=== PATIENT | male | born 1995 | race Caucasian/White ===

== ENCOUNTER 2016-07-05 17:59 | Emergency (ER) | payer OTHER ==
[~2016-07-05] VITALS: Ht 170.2 cm; Wt 86.4 kg
[~2016-07-05 17:59] MED LIST: NAPR-1169 PO; OXYC-57 PO; OXYC1TAB3 PO
[2016-07-05 18:12] VITALS: TEMP 37.6; Ht 170.2 cm; Wt 86.4 kg
[2016-07-05] MEDS ORDERED: KETOROLAC TROMETHAMINE 30 MG/ML VIAL IV STA (18:54)
[2016-07-05] MEDS ORDERED: ONDANSETRON INJ 2 MG/ML 2 ML VIAL IV STA (18:54)
[2016-07-05] MEDS ORDERED: SODIUM CHLORIDE 0.9% 1000ML 1,000 ML IV STA (18:54)
[2016-07-05] MEDS ORDERED: OPTIRAY 320 IV PRN (19:00)
[2016-07-05] MEDS ORDERED: ACET-1256 PO (19:31)
[2016-07-05] MEDS ORDERED: ZOLP10TA PO (19:31)
[2016-07-05 19:41] LABS: BASO % 0.7 %; BASO ABS # 0.05 K/uL (0-0.2); COMPLETE YES; EOS % 4.5 %; HEMATOCRIT 43.1 % (42-52); IG% 0.1 %; LYMPH % 39.9 %; LYMPH ABS # 2.67 K/uL (1.2-3.4); MEAN CELL VOLUME 83.9 fL (80-100); MEAN CORPUSCULAR HEMOGLOBIN 30.4 pg (25-34); MEAN CORPUSCULAR HGB CONC 36.2 g/dl (32-36); MEAN PLATELET VOLUME 9.3 fL (7.4-10.4); MONO % 9.7 %; NEUT % 45.1 %; PLATELET COUNT 209 K/uL (130-400); RED BLOOD COUNT 5.14 M/uL (4.7-6.1); WHITE BLOOD COUNT 6.69 K/uL (4.8-10.8)
[2016-07-05 19:46] LABS: BUN/CREATININE RATIO 12.1 (10-20); CALCIUM 8.9 mg/dl (8.5-10.1); CREATININE 0.87 mg/dl (0.60-1.40); POTASSIUM 3.7 mmol/L (3.5-5.1)
--- NOTE | 2016-07-05 20:36 | DIAGNOSTIC IMAGING REPORT ---
CT ABD/PELVIS IV CONTRAST ONLY CLINICAL HISTORY: right sided abd pain COMPARISON STUDY: None. TECHNIQUE: Following the IV administration of 118 mL of Optiray-320, CT scan of the abdomen and pelvis was performed from the lung bases to the proximal femurs. Images are reviewed in the axial, sagittal, and coronal planes. IV contrast was administered without complication. CT DOSE: 414.61 mGy.cm FINDINGS: Lower chest: The heart is normal in size and configuration, without pericardial effusion. The lung bases and pleural spaces are clear. Liver: There is mild hepatic steatosis. No focal masses are visualized. There is no ductal dilatation. The portal vein is patent. Gallbladder: Contracted. Spleen: Normal in size and attenuation. Pancreas: Unremarkable. Adrenal glands: Unremarkable. Kidneys: There is symmetric renal cortical enhancement. The kidneys are normal in size without hydronephrosis. Bowel: There are no transition zones indicate bowel obstruction. There is no evidence of acute diverticulitis. The appendix is not visualized with certainty. There are no findings to indicate acute appendicitis. Peritoneum: There is no intraperitoneal free air or abdominal ascites. Vasculature: The abdominal aorta is normal in course and caliber. Adenopathy: None. Pelvic viscera: The bladder, and pelvic viscera are unremarkable. Skeletal structures: There is a chronic deformity the right hip. The patient is status post right hip pinning. IMPRESSION: 1. No evidence of bowel obstruction. No evidence of free air 2. The appendix is not visualized with certainty. There are however no findings to indicate acute appendicitis 3. No evidence of acute diverticulitis. 4. Mild hepatic steatosis Electronically signed by: Fritz Alberto M.D. 07/05/2016 8:35 PM Dictated Date/Time: 07/05/2016 8:29 PM
[2016-07-05] MEDS ORDERED: MoRPHine SULFATE 4 MG/ML 1 ML CARP\\VIAL IV STA (20:42)
[2016-07-05 20:50] VITALS: BP 149/91; PULSE 87; O2SAT 98
[2016-07-05 20:56] LABS: MANUAL MICROSCOPIC REQUIRED? NO; URINE APPEARANCE CLEAR (CLEAR); URINE BILIRUBIN NEG (NEG); URINE COLOR YELLOW; URINE NITRITE NEG (NEG); URINE PH 6.5 (4.5-7.5); UROBILINOGEN NEG (NEG)
[2016-07-05 21:06] LABS: REVIEW REQ? NO
[2016-07-05 21:10] LABS: ZZUR CULT IF INDIC CLEAN CATCH NO
--- NOTE | 2016-07-06 00:53 | EMERGENCY ROOM VISIT NOTE ---
History Report prepared by Kim: Javier Rivas Under the Supervision of: Dr. Gregorio Smiley D.O. First contact with patient: 18:43 Chief Complaint: ABDOMINAL PAIN Stated Complaint: STOMACH PAIN,SEVERE BACK PAIN Nursing Triage Summary: pt reports for last week abd pain seen in ed in [facility] with acute diarrhea. pt believes it is his gallbladder History of Present Illness The patient is a 21 year old male who presents to the Emergency Room with complaints of intermittent right sided abdominal pain beginning two and a half months prior to arrival. He currently rates his discomfort as a 7/10 in severity. The patient associates lower back pain and nausea with today's symptoms. He states his lower back pain has persisted for the past several months, but recently worsened a few weeks ago while shoveling. The patient notes he has been experiencing intermittent diarrhea since his abdominal pain began, but he is not currently experiencing the diarrhea. However, his abdominal pain has persisted for the past week. He states he still has his appendix and gallbladder. The patient denies a history of abdominal surgeries or medical problems. Pt denies headache, change in vision, fevers, chest pain, shortness of breath, vomiting, diarrhea, pain with urination, and melena. No tingling or numbness in his groin. No weakness of his legs. Source of History: patient Onset: two and a half months [employer] Position: abdomen (right sided) Symptom Intensity: 7/10 Timing: intermittent Associated Symptoms: + abdominal pain, + back pain (lower), + nausea Review of Systems See HPI for pertinent positives & negatives. A total of 10 systems reviewed and were otherwise negative. Past Medical & Surgical Medical Problems: (1) Arthritis, hip Surgical Problems: (1) S/P ACL reconstruction Family History FH: gallbladder disease Social History Smoking Status: Current Every Day Smoker Marital Status: in relationship Housing Status: lives with significant other Occupation Status: employed Current/Historical Medications Scheduled Zolpidem Tartrate (Ambien), 10 MG PO HS Scheduled PRN Acetaminophen (Tylenol), 1,000 MG PO Q6H PRN for Pain or Fever Allergies Coded Allergies: No Known Allergies (Unverified , 03/18/16) Physical Exam Vital Signs Date Time Temp Pulse Resp B/P Pulse Ox O2 Delivery O2 Flow Rate FiO2 07/05/16 20:50 87 18 149/91 98 Room Air 07/05/16 19:43 85 18 135/94 99 Room Air 07/05/16 18:12 37.6 104 18 161/109 100 Room Air Physical Exam GENERAL: ambulating throughout the room, alert, well appearing, well nourished, no distress, non-toxic EYE EXAM: normal conjunctiva OROPHARYNX: no exudate, no erythema, lips, buccal mucosa, and tongue normal and mucous membranes are moist NECK: supple, no nuchal rigidity, no adenopathy, non-tender LUNGS: Clear to auscultation. Normal chest wall mechanics HEART: no murmurs, S1 normal and S2 normal ABDOMEN: minimal tenderness on right side of the abdomen, abdomen soft, normo- active bowel sounds, no masses, no rebound or guarding. BACK: Back is symmetrical on inspection and there is no deformity, no midline tenderness, no CVA tenderness. SKIN: no rashes and no bruising UPPER EXTREMITIES: upper extremities are grossly normal. LOWER EXTREMITIES: No pitting edema. NEURO EXAM: Normal sensorium, cranial nerves II-XII grossly intact, normal speech, no gross weakness of arms, no gross weakness of legs. Medical Decision & Procedures ER Provider Diagnostic Interpretation: CT:Per my review, radiologist interpretation. CT ABD/PELVIS IV CONTRAST ONLY CLINICAL HISTORY: right sided abd pain COMPARISON STUDY: None. TECHNIQUE: Following the IV administration of 118 mL of Optiray-320, CT scan of the abdomen and pelvis was performed from the lung bases to the proximal femurs. Images are reviewed in the axial, sagittal, and coronal planes. IV contrast was administered without complication. CT DOSE: 414.61 mGy.cm FINDINGS: Lower chest: The heart is normal in size and configuration, without pericardial effusion. The lung bases and pleural spaces are clear. Liver: There is mild hepatic steatosis. No focal masses are visualized. There is no ductal dilatation. The portal vein is patent. Gallbladder: Contracted. Spleen: Normal in size and attenuation. Pancreas: Unremarkable. Adrenal glands: Unremarkable. Kidneys: There is symmetric renal cortical enhancement. The kidneys are normal in size without hydronephrosis. Bowel: There are no transition zones indicate bowel obstruction. There is no evidence of acute diverticulitis. The appendix is not visualized with certainty. There are no findings to indicate acute appendicitis. Peritoneum: There is no intraperitoneal free air or abdominal ascites. Vasculature: The abdominal aorta is normal in course and caliber. Adenopathy: None. Pelvic viscera: The bladder, and pelvic viscera are unremarkable. Skeletal structures: There is a chronic deformity the right hip. The patient is status post right hip pinning. IMPRESSION: 1. No evidence of bowel obstruction. No evidence of free air 2. The appendix is not visualized with certainty. There are however no findings to indicate acute appendicitis 3. No evidence of acute diverticulitis. 4. Mild hepatic steatosis Electronically signed by: Fritz Alberto M.D. 07/05/2016 8:35 PM Laboratory Results 07/05/16 19:15 Red Blood Count 5.14, Mean Corpuscular Volume 83.9, Mean Corpuscular Hemoglobin 30.4, Mean Corpuscular Hemoglobin Concent 36.2, Mean Platelet Volume 9.3, Neutrophils (%) (Auto) 45.1, Lymphocytes (%) (Auto) 39.9, Monocytes (%) (Auto) 9.7, Eosinophils (%) (Auto) 4.5, Basophils (%) (Auto) 0.7, Neutrophils # (Auto) 3.01, Lymphocytes # (Auto) 2.67, Monocytes # (Auto) 0.65, Eosinophils # (Auto) 0.30, Basophils # (Auto) 0.05 07/05/16 19:15 Test 07/05/16 19:15 07/05/16 20:30 White Blood Count 6.69 K/uL (4.8-10.8) Red Blood Count 5.14 M/uL (4.7-6.1) Hemoglobin 15.6 g/dL (14.0-18.0) Hematocrit 43.1 % (42-52) Mean Corpuscular Volume 83.9 fL (80-100) Mean Corpuscular Hemoglobin 30.4 pg (25-34) Mean Corpuscular Hemoglobin Concent 36.2 g/dl (32-36) Platelet Count 209 K/uL (130-400) Mean Platelet Volume 9.3 fL (7.4-10.4) Neutrophils (%) (Auto) 45.1 % Lymphocytes (%) (Auto) 39.9 % Monocytes (%) (Auto) 9.7 % Eosinophils (%) (Auto) 4.5 % Basophils (%) (Auto) 0.7 % Neutrophils # (Auto) 3.01 K/uL (1.4-6.5) Lymphocytes # (Auto) 2.67 K/uL (1.2-3.4) Monocytes # (Auto) 0.65 K/uL (0.11-0.59) Eosinophils # (Auto) 0.30 K/uL (0-0.5) Basophils # (Auto) 0.05 K/uL (0-0.2) RDW Standard Deviation 40.0 fL (36.4-46.3) RDW Coefficient of Variation 13.2 % (11.5-14.5) Immature Granulocyte % (Auto) 0.1 % Immature Granulocyte # (Auto) 0.01 K/uL (0.00-0.02) Anion Gap 9.0 mmol/L (3-11) Est Creatinine Clear Calc Drug Dose 139.8 ml/min Estimated GFR () 142.0 Estimated GFR (Non- 122.5 BUN/Creatinine Ratio 12.1 (10-20) Calcium Level 8.9 mg/dl (8.5-10.1) Total Bilirubin 0.4 mg/dl (0.2-1) Direct Bilirubin 0.1 mg/dl (0-0.2) Aspartate Amino Transf (AST/SGOT) 29 U/L (15-37) Alanine Aminotransferase (ALT/SGPT) 67 U/L (12-78) Alkaline Phosphatase 56 U/L (45-117) Total Protein 7.6 gm/dl (6.4-8.2) Albumin 4.1 gm/dl (3.4-5.0) Lipase 136 U/L (73-393) Urine Color YELLOW Urine Appearance CLEAR (CLEAR) Urine pH 6.5 (4.5-7.5) Urine Specific [place] 1.010 (1.000-1.030) Urine Protein NEG (NEG) Urine Glucose (UA) NEG (NEG) Urine Ketones NEG (NEG) Urine Occult Blood NEG (NEG) Urine Nitrite NEG (NEG) Urine Bilirubin NEG (NEG) Urine Urobilinogen NEG (NEG) Urine Leukocyte Esterase NEG (NEG) Laboratory results per my review. Medications Administered Medications (Trade) Dose Ordered Sig/Kimberley Route Start Time Stop Time Status Last Admin Dose Admin Sodium Chloride (Nss 1000ml) 1,000 ml @ 999 mls/hr Q1H1M STAT IV 07/05/16 18:54 07/05/16 19:54 DC 07/05/16 19:17 999 MLS/HR Ondansetron HCl (Zofran Inj) 4 mg NOW STAT IV 07/05/16 18:54 07/05/16 18:56 DC 07/05/16 19:17 4 MG Ketorolac Tromethamine (Toradol Inj) 30 mg NOW STAT IV 07/05/16 18:54 07/05/16 18:56 DC 07/05/16 19:17 30 MG Morphine Sulfate (MoRPHine SULFATE INJ) 4 mg NOW STAT IV 07/05/16 20:42 07/05/16 20:43 DC 07/05/16 20:49 4 MG ED Course ED COURSE: Vital signs were reviewed and showed tachycardia and hypertension. The patients medical record was reviewed The above diagnostic studies were performed and reviewed. ED treatments and interventions as stated above. 1847: The patient was evaluated in room A9B. A complete history and physical examination was performed. 1853: Ordered Toradol Inj 30 mg IV, Zofran Inj 4 mg IV, Sodium Chloride 1,000 ml @ 999 mls/hr IV. 2039: Reevaluated the patient at this time, and he is still experiencing discomfort. 2041: Ordered Morphine Sulfate 4 mg IV. 2127: Upon reevaluation, the patient is doing well.I discussed my findings with the patient and he understands and agrees with the treatment plan. Based on the patients age, coexisting illnesses, exam and lab findings the decision to treat as an outpatient was made. The patient remained stable while under my care. The patient appeared well at the time of discharge. Medical Decision Differential diagnoses includes but is not limited to gastritis, peptic ulcer disease, GERD, gallbladder disease, pancreatitis, small bowel obstruction, acute coronary syndrome, pericarditis, ischemic bowel, irritable bowel disease, irritable bowel syndrome, appendicitis, diverticulitis, malignancy, hernia, urinary tract infection, torsion, perforation, trauma, infectious. Patient is a 19-year-old male who presents the ER for persistent abdominal pain , and diarrhea. He has the abdominal pain and diarrhea have been waxing and waning for the past several months. He notes that his diarrhea has currently resolved. He had a formed bowel movement earlier today. He has had stool cultures done at an outside hospital which were unremarkable. CT of his abdomen and pelvis was unremarkable. Labs including CBC, BMP, LFTs, bilirubin and lipase are unremarkable. UA was negative. His back pain worsened after shoveling and does appear to be worsening with movement. Do favor this muscle skeletal. I question whether his abdominal pain is related to IBS but that does not appear to be any acute pathology. While in the ER he was given a bolus normal saline along with Toradol and morphine. He did have improvement of his pain. Patient was discharged and requested narcotics. I do not feel this is reasonable as does appear to be more of an acute on chronic issue and consequently I was not comfortable with this. Recommended following up with GI and offered referral but he already currently has an appointment set up for early July. Discussed with Pt concerning signs and symptoms to watch out for. Pt was instructed to follow up with their PCP and discussed with the patient their option to return to the ED at anytime for persistent or worsening symptoms. The appropriate anticipatory guidance and out-patient management, including indications for return to the emergency department, were explained at length to the patient and understood. Impression Primary Impression: Right sided abdominal pain Scribe Attestation The scribe's documentation has been prepared under my direction and personally reviewed by me in its entirety. I confirm that the note above accurately reflects all work, treatment, procedures, and medical decision making performed by me. Departure Information Dispostion Home / Self-Care Referrals No Doctor, Assigned (PCP) Forms HOME CARE DOCUMENTATION FORM, IMPORTANT VISIT INFORMATION Patient Instructions Abdominal Pain - [facility], [facility] Additional Instructions Please follow up with your primary care doctor with in the next 24 hours. Any worsening of your symptoms, please return to the ED immediately. This includes fevers greater than 100.4, persistent nausea vomiting, worsening pain, blood in your stool, or any other concerning signs or symptoms from your standpoint. Please take Motrin or Tylenol as needed for your pain.
[2016-10-04] MEDS ORDERED: AZIT250T5 PO (19:03)
== END 2016-07-05 21:40 | disposition home or self-care (01) ==
LOC: C.EDB 18:00 → C.EDA 21:40
DX: R10.9 Unspecified abdominal pain (principal); R19.7 Diarrhea, unspecified; M19.90 Unspecified osteoarthritis, unspecified site; F17.200 Nicotine dependence, unspecified, uncomplicated; Z98.890 Other specified postprocedural states

== ENCOUNTER → 2016-09-26 | Outpatient (CLI) | payer OTHER ==
[~2016-09-26] VITALS: Ht 177.8 cm; Wt 91.0 kg
[~2016-09-26] MED LIST changes: +ACET-1256 PO; +AZIT-60 PO; +HYDR-3126 PO; +IBUP-1050 PO; -NAPR-1169 PO; -OXYC1TAB3 PO; +ZOLP10TA PO
[2016-09-26 14:31] VITALS: BP 145/90; PULSE 73; Ht 177.8 cm; Wt 91.0 kg
== END | disposition home or self-care (01) ==
LOC: C.NEUR 13:56
PROVIDERS: ATTEND Internal Medicine Pulmonary Disease
DX: G47.00 Insomnia, unspecified (principal)

== ENCOUNTER 2016-10-04 15:47 | Emergency (ER) | payer OTHER ==
[~2016-10-04] VITALS: Ht 177.8 cm; Wt 90.5 kg
[~2016-10-04 15:47] MED LIST changes: -AZIT-60 PO; -HYDR-3126 PO; -IBUP-1050 PO; -OXYC-57 PO
[2016-10-04 15:55] VITALS: Ht 177.8 cm; Wt 90.5 kg
[2016-10-04] MEDS ORDERED: ONDANSETRON INJ 2 MG/ML 2 ML VIAL IV STA (16:15)
[2016-10-04] MEDS ORDERED: SODIUM CHLORIDE 0.9% 1000ML 1,000 ML IV STA (16:15)
[2016-10-04] MEDS ORDERED: MoRPHine SULFATE 4 MG/ML 1 ML CARP\\VIAL IV STA (16:15)
[2016-10-04] MEDS ORDERED: HYDR-3126 PO (16:29)
--- NOTE | 2016-10-04 16:35 | DIAGNOSTIC IMAGING REPORT ---
CHEST ONE VIEW PORTABLE HISTORY: Cough, dyspnea COMPARISON: None. FINDINGS: The lungs are clear. Cardiac silhouette is normal in size. No pleural effusions. No pneumothorax. IMPRESSION: No acute process. Electronically signed by: Juan Looney M.D. 10/04/2016 4:33 PM Dictated Date/Time: 10/04/2016 4:32 PM
[2016-10-04 16:47] VITALS: O2SAT 98
[2016-10-04 17:03] LABS: BASO % 0.3 %; BASO ABS # 0.03 K/uL (0-0.2); COMPLETE YES; EOS % 2.1 %; HEMATOCRIT 43.7 % (42-52); IG% 0.4 %; LYMPH % 23.5 %; LYMPH ABS # 2.32 K/uL (1.2-3.4); MEAN CELL VOLUME 82.8 fL (80-100); MEAN CORPUSCULAR HEMOGLOBIN 30.5 pg (25-34); MEAN CORPUSCULAR HGB CONC 36.8 g/dl (32-36); MONO % 7.8 %; NEUT % 65.9 %; PLATELET COUNT 244 K/uL (130-400); RED BLOOD COUNT 5.28 M/uL (4.7-6.1); WHITE BLOOD COUNT 9.87 K/uL (4.8-10.8)
[2016-10-04 17:12] LABS: POINT OF CARE TROPONIN I < 0.030 ng/ml (0-0.045)
[2016-10-04 17:14] LABS: PROTHROMBIN TIME (PATIENT) 10.4 SECONDS (9.0-12.0)
[2016-10-04 17:22] LABS: ALT/SGPT 82 U/L (12-78); AST/SGOT 32 U/L (15-37); BLOOD UREA NITROGEN 12 mg/dl (7-18); BUN/CREATININE RATIO 13.9 (10-20); CALCIUM 9.4 mg/dl (8.5-10.1); CARBON DIOXIDE 25 mmol/L (21-32); CHLORIDE 108 mmol/L (98-107); GLUCOSE 93 mg/dl (70-99); MAGNESIUM 2.6 mg/dl (1.8-2.4); SODIUM 141 mmol/L (136-145)
[2016-10-04 17:25] LABS: ALB/GLOB RATIO 1.3 (0.9-2); ALKALINE PHOSPHATASE 73 U/L (45-117); C-REACTIVE PROTEIN < 0.29 mg/dl (0-0.29)
--- NOTE | 2016-10-04 17:37 | DIAGNOSTIC IMAGING REPORT ---
RIGHT KNEE 3 VIEWS CLINICAL HISTORY: Right knee pain, fever, chills. COMPARISON: Outside radiograph dated 08/23/2016 DISCUSSION: There are postsurgical changes of an ACL repair. There is a small joint effusion. Small calcific/bony fragments are again visualized at the level of the intercondylar notch. There are no acute fractures. IMPRESSION: 1. Postsurgical changes of a prior ACL repair 2. No acute fractures 3. Small suprapatellar joint effusion. Electronically signed by: Fritz Alberto M.D. 10/04/2016 5:36 PM Dictated Date/Time: 10/04/2016 5:35 PM
[2016-10-04 18:21] LABS: URINE APPEARANCE CLEAR (CLEAR); URINE BILIRUBIN NEG (NEG); URINE COLOR YELLOW; URINE NITRITE NEG (NEG); URINE PH 7.5 (4.5-7.5); URINE SPECIFIC GRAVITY 1.011 (1.000-1.030); UROBILINOGEN NEG (NEG); ZZUR CULT IF INDIC CLEAN CATCH NO
[2016-10-04 18:30] LABS: MANUAL MICROSCOPIC REQUIRED? NO; REVIEW REQ? NO
[2016-10-04] MEDS ORDERED: AZITHROMYCIN 250 MG TAB PO STA (19:01)
[2016-10-04] MEDS ORDERED: OXYC-57 PO (19:03)
[2016-10-04] MEDS ORDERED: AZIT-60 PO (19:03)
--- NOTE | 2016-10-04 19:06 | EMERGENCY ROOM VISIT NOTE ---
History First contact with patient: 16:01 Chief Complaint: ILLNESS Stated Complaint: RT KNEE PAIN, FEVER, DIZZINESS, CHILLS History of Present Illness The patient is a 21 year old male who presents to the Emergency Room via private vehicle accompanied by with complaints of "right knee pain, fever, dizziness, chills". The patient states that he had right meniscal repair with Dr. Mike moya 3 weeks ago, and since then has been developing a cough, dizziness, right knee pain and feeling feverish. He also has associated shortness of breath. He states that 3 weeks ago he had the knee surgery for his meniscus and has been doing well. He believes that it fixed the issue. He states unfortunately the knee caused him a lot of problems and secondarily lost his job previously. He states that he also was placed upon the lisinopril recently inserted for 4 days but developed a cough of which has regressed despite stopping the medication. He now notes the cough is productive of greenish and yellow phlegm. He states that dizziness began a few days ago, and today while standing he felt as if he is going to pass out. He notes shortness of breath started yesterday as well as the dizziness. The fever also started yesterday. He took his temperature and was having any 99.6, 99.9, 100.1 and 99.9 all of which are in Fahrenheit. He denies any chest pain. Review of Systems A complete 6-point Review of Systems was discussed with the patient, with pertinent positives and negatives listed in the History of Present Illness. All remaining Review of Systems questions can be considered negative unless otherwise specified. Past Medical/Surgical History Medical Problems: (1) Arthritis, hip Surgical Problems: (1) S/P ACL reconstruction Family History FH: gallbladder disease Social History Smoking Status: Current Every Day Smoker Marital Status: in relationship Housing Status: lives with significant other Occupation Status: employed Current/Historical Medications Scheduled Azithromycin (Zithromax), 250 MG PO DAILY Hydroxyzine Hcl (Atarax), 100 MG PO HS Zolpidem Tartrate (Ambien), 10 MG PO HS Scheduled PRN Oxycodone/Acetaminophen 5MG/325MG (Percocet 5MG/325MG), 1 TAB PO Q4H PRN for Pain Allergies Coded Allergies: No Known Allergies (Unverified , 10/04/16) Physical Exam Vital Signs Date Time Temp Pulse Resp B/P (MAP) Pulse Ox O2 Delivery O2 Flow Rate FiO2 10/04/16 20:44 36.9 81 16 128/87 97 10/04/16 20:43 81 16 128/87 97 Room Air 10/04/16 19:29 88 16 124/88 97 Room Air 10/04/16 17:18 88 10/04/16 17:06 135/97 10/04/16 17:05 88 16 135/97 97 Room Air 10/04/16 16:47 98 Room Air 10/04/16 15:55 36.9 111 16 155/93 98 Room Air Physical Exam VITAL SIGNS - Vital signs and nursing notes were reviewed. Patient is afebrile , hypertensive at 155/93, tachycardic at a rate of 111 bpm, and is saturating well on room air 98%. GENERAL -21-year-old male appearing his stated age who is in no acute distress. Communicates well with provider and answers questions appropriately. SKIN - Without rashes. HEAD - NC/AT. EYES - PERRL with EOMI bilaterally. Sclera anicteric. Palpebral conjunctiva pink and moist with no injection noted. EARS - No deformities of external structures noted on gross examination bilaterally. No pain elicited with palpation of the tragus bilaterally. External auditory canals without discharge or otorrhea. Tympanic membranes pearly thomas without retraction or bulging. No fluid or purulent material visualized behind the TM. Handle of malleus, umbo, cone of light, pars tensa/ flaccid all easily visualized. NOSE - Midline and without cyanosis. No epistaxis or purulent drainage noted. Septum midline without deviation or septal hematoma noted. MOUTH/OROPHARYNX - Without perioral cyanosis. Buccal mucosa pink and moist and without leukoplakia. Tongue midline with equal elevation of palate bilaterally. No tonsillar hypertrophy, erythema, or exudates. Fair dentition noted. NECK - Neck with FROM. Supple to palpation. No lymphadenopathy noted. No nuchal rigidity. No meningismus LUNGS - Chest wall symmetric without accessory muscle use, intercostals retractions, or central cyanosis. Normal vesicular breath sounds CTA B/L. No wheezes, rales, or rhonchi appreciated. CARDIAC - RRR with S1/S2. No murmur, rubs, or gallops appreciated. EXTREMITIES - No clubbing or peripheral cyanosis. No pretibial edema present. The right knee joint is not erythematous, edematous or tender to palpation. There is near full range of motion of the right knee. +5/5 strength noted in UE /LE bilaterally. NEUROLOGIC - Cranial nerves II through XII grossly intact. Sensory intact to light touch throughout. PSYCH - A&OPt is very pleasant and interacts well with examiner. Medical Decision & Procedures ER Provider Diagnostic Interpretation: ULTRASOUND RIGHT VENOUS DOPP LOWER EXT UNILAT CLINICAL HISTORY: Right leg pain COMPARISON STUDY: No previous studies for comparison. FINDINGS: Real-time and color flow Doppler imaging were performed. Flow was seen within the femoral, popliteal and calf veins with no intraluminal thrombus demonstrated. The saphenous vein is patent. IMPRESSION: No evidence of right lower extremity DVT. Electronically signed by: Fritz Alberto M.D. 10/04/2016 7:58 PM Dictated Date/Time: 10/04/2016 7:58 PM RIGHT KNEE 3 VIEWS CLINICAL HISTORY: Right knee pain, fever, chills. COMPARISON: Outside radiograph dated 08/23/2016 DISCUSSION: There are postsurgical changes of an ACL repair. There is a small joint effusion. Small calcific/bony fragments are again visualized at the level of the intercondylar notch. There are no acute fractures. IMPRESSION: 1. Postsurgical changes of a prior ACL repair 2. No acute fractures 3. Small suprapatellar joint effusion. Electronically signed by: Fritz Alberto M.D. 10/04/2016 5:36 PM Dictated Date/Time: 10/04/2016 5:35 PM CHEST ONE VIEW PORTABLE HISTORY: Cough, dyspnea COMPARISON: None. FINDINGS: The lungs are clear. Cardiac silhouette is normal in size. No pleural effusions. No pneumothorax. IMPRESSION: No acute process. Electronically signed by: Juan Looney M.D. 10/04/2016 4:33 PM Dictated Date/Time: 10/04/2016 4:32 PM Laboratory Results 10/04/16 16:35 Red Blood Count 5.28, Mean Corpuscular Volume 82.8, Mean Corpuscular Hemoglobin 30.5, Mean Corpuscular Hemoglobin Concent 36.8, Mean Platelet Volume 9.0, Neutrophils (%) (Auto) 65.9, Lymphocytes (%) (Auto) 23.5, Monocytes (%) (Auto) 7.8, Eosinophils (%) (Auto) 2.1, Basophils (%) (Auto) 0.3, Neutrophils # (Auto) 6.50, Lymphocytes # (Auto) 2.32, Monocytes # (Auto) 0.77, Eosinophils # (Auto) 0.21, Basophils # (Auto) 0.03 10/04/16 16:35 Test 10/04/16 16:35 10/04/16 16:53 10/04/16 18:05 White Blood Count 9.87 K/uL (4.8-10.8) Red Blood Count 5.28 M/uL (4.7-6.1) Hemoglobin 16.1 g/dL (14.0-18.0) Hematocrit 43.7 % (42-52) Mean Corpuscular Volume 82.8 fL (80-100) Mean Corpuscular Hemoglobin 30.5 pg (25-34) Mean Corpuscular Hemoglobin Concent 36.8 g/dl (32-36) Platelet Count 244 K/uL (130-400) Mean Platelet Volume 9.0 fL (7.4-10.4) Neutrophils (%) (Auto) 65.9 % Lymphocytes (%) (Auto) 23.5 % Monocytes (%) (Auto) 7.8 % Eosinophils (%) (Auto) 2.1 % Basophils (%) (Auto) 0.3 % Neutrophils # (Auto) 6.50 K/uL (1.4-6.5) Lymphocytes # (Auto) 2.32 K/uL (1.2-3.4) Monocytes # (Auto) 0.77 K/uL (0.11-0.59) Eosinophils # (Auto) 0.21 K/uL (0-0.5) Basophils # (Auto) 0.03 K/uL (0-0.2) RDW Standard Deviation 36.9 fL (36.4-46.3) RDW Coefficient of Variation 12.4 % (11.5-14.5) Immature Granulocyte % (Auto) 0.4 % Immature Granulocyte # (Auto) 0.04 K/uL (0.00-0.02) Erythrocyte Sedimentation Rate 5 mm/hr (0-14) Prothrombin Time 10.4 SECONDS (9.0-12.0) Prothromb Time International Ratio 1.0 (0.9-1.1) Activated Partial Thromboplast Time 26.2 SECONDS (21.0-31.0) Partial Thromboplastin Ratio 1.0 Anion Gap 8.0 mmol/L (3-11) Est Creatinine Clear Calc Drug Dose 145.7 ml/min Estimated GFR () 140.0 Estimated GFR (Non- 120.8 BUN/Creatinine Ratio 13.9 (10-20) Calcium Level 9.4 mg/dl (8.5-10.1) Magnesium Level 2.6 mg/dl (1.8-2.4) Total Bilirubin 0.4 mg/dl (0.2-1) Aspartate Amino Transf (AST/SGOT) 32 U/L (15-37) Alanine Aminotransferase (ALT/SGPT) 82 U/L (12-78) Alkaline Phosphatase 73 U/L (45-117) C-Reactive Protein < 0.29 mg/dl (0-0.29) Total Protein 8.1 gm/dl (6.4-8.2) Albumin 4.5 gm/dl (3.4-5.0) Globulin 3.6 gm/dl (2.5-4.0) Albumin/Globulin Ratio 1.3 (0.9-2) Bedside D-Dimer 152 ng/mlFEU (0-450) Bedside Lactic Acid Venous 1.72 mmol/L (0.90-1.70) Bedside Troponin I < 0.030 ng/ml (0-0.045) Urine Color YELLOW Urine Appearance CLEAR (CLEAR) Urine pH 7.5 (4.5-7.5) Urine Specific [place] 1.011 (1.000-1.030) Urine Protein NEG (NEG) Urine Glucose (UA) NEG (NEG) Urine Ketones NEG (NEG) Urine Occult Blood NEG (NEG) Urine Nitrite NEG (NEG) Urine Bilirubin NEG (NEG) Urine Urobilinogen NEG (NEG) Urine Leukocyte Esterase NEG (NEG) Medications Administered Medications (Trade) Dose Ordered Sig/[place] Route Start Time Stop Time Status Last Admin Dose Admin Morphine Sulfate (MoRPHine SULFATE INJ) 4 mg NOW STAT IV 10/04/16 16:15 10/04/16 16:18 DC 10/04/16 16:46 4 MG Ondansetron HCl (Zofran Inj) 4 mg NOW STAT IV 10/04/16 16:15 10/04/16 16:18 DC 10/04/16 16:45 4 MG Sodium Chloride 1,000 ml @ 999 mls/hr Q1H1M STAT IV 10/04/16 16:15 10/04/16 17:15 DC 10/04/16 16:45 999 MLS/HR Azithromycin (Zithromax Tab) 500 mg NOW STAT PO 10/04/16 19:01 10/04/16 19:03 DC 10/04/16 19:33 500 MG Medical Decision Patient was seen and evaluated as above. After obtaining a thorough history and physical examination IV access was initiated and the above workup was performed. Patient presents today subjectively with a concern over shortness of breath, dizziness, fevers, chills as well as knee pain. The accompanying states that he is concerned he could be septic secondary to a knee joint. Radiographs were obtained of the right knee, chest and the above workup was performed. There is no leukocytosis or anemia noted. ESR is 5. Coags normal. D-dimer normal. CMP reveals chloride high at 108, [id number] lactic acid 1.72, mag high at 2.6 and ALT was high at 82. Troponin was negative. C-reactive protein normal. Urine unremarkable. Patient was given morphine and Zofran for his pain. He was reevaluated and was feeling better. I do not suspect septic joint in this case. Chest x-ray unremarkable for acute process. Case was discussed with my attending, and the decision was made to contact the on-call orthopedic surgeon who performed the surgery. It was stated the patient was referred here by them today after he called in to their office. I spoke with Dr. Cuevas, he recommended I obtain an ultrasound to rule out DVT. This was negative. I discussed with him that I do not suspect septic joint in this patient. Blood cultures are pending, and the patient was told that if these are positive he'll certainly be notified. Patient this time appears stable for outpatient management. He is to call his orthopedic surgeon tomorrow to schedule follow-up. I did provide him with 500 mg of azithromycin here for treatment of acute bronchitis 250 mg for next 4 days provided to the pharmacy. I was also going to give him Percocet for his pain, however I was called by the pharmacy and we discussed repeat BMP. Patient does have a lot of prescriptions, and Nexium as a current prescription for [place]. I we will cancel the Percocet prescription and verbally canceled this with the pharmacist from [facility]. I do believe this is the right decision and did inform the patient upon this concern. I informed him that he does have an active prescription, and he told me that he soaked the pills and water because they do not help him a double down the drain or toilet. I informed him that unfortunately he has a current prescription, therefore I do not feel comfortable providing him with a prescription. The patient at this time appears stable for outpatient management , was educated upon worrisome symptoms which to return, had questions prior to discharge, and was discharged home in good condition. In the evaluation and treatment of this patient, the following differential diagnoses were considered: Patellar Fracture, Tibial Plateau Fracture, Distal Femur Fracture, ACL Injury, PCL Injury, Collateral Ligament Injury, Pes Anserine Bursitis, septic joint, pneumonia, [place]uve Fracture, among others. Impression Primary Impression: Cough Additional Impression: Knee pain, right Departure Information Dispostion Home / Self-Care Condition GOOD Prescriptions Azithromycin (ZITHROMAX) 250 Mg Tab 250 MG PO DAILY, #4 TAB Prov: Sanket Pulido PA-C 10/04/16 Oxycodone/Acetaminophen 5MG/325MG (PERCOCET 5MG/325MG) Tab 1 TAB PO Q4H Y for Pain, #18 TAB For Initial Treatment Prov: Sanket Pulido PA-C 10/04/16 Referrals Drew Li D.O. (PCP) Dmitir Abreu M.D. Patient Instructions My [facility] Additional Instructions You have been treated in the Emergency Department for Knee Pain. You have received pain medicine in the emergency department which impairs your ability to operate a vehicle. It is illegal for you to drive after receiving these medicines. You have been prescribed PERCOCET to be used for pain control. This is a narcotic medication. You cannot drive or consume alcohol while on this medicine. This medicine should only be used for pain that cannot be controlled with [id number] pain medicines. NO TYLENOL WITH THIS!! Azithromycin starting tomorrow daily for 4 days for your cough. For pain control, you can use the following [id number] medicines (if >12 yo): - Regular strength (325mg/tab) Tylenol (acetaminophen) 2 tabs every 4-6 hours as needed. Do not exceed 12 tablets in a 24 hour period. Avoid taking more than 3 grams (3000 mg) of Tylenol per day. This includes any other sources of acetaminophen you may take on a regular basis. - Regular strength (200 mg/tab) Advil (ibuprofen) 1-2 tabs every 4-6 hours as needed. Do not exceed a dose of 3200 mg per day. If this is a recent injury (<24 hrs), ice can be applied to the area of pain for the first 3 days to help decrease pain and inflammation. Ice massages can be performed by freezing water in a paper cup, peeling back the cup to expose the ice and then massaging over the affected area. You have been provided the number for an Orthopaedic Surgeon. You should call this number as soon as possible to establish a follow-up visit from today's Emergency Department visit. Return to the Emergency Department if your current symptoms worsen despite treatment course outlined above. Please return to the emergency department with any new/concerning symptoms. Problem Qualifiers
--- NOTE | 2016-10-04 20:00 | DIAGNOSTIC IMAGING REPORT ---
ULTRASOUND RIGHT VENOUS DOPP LOWER EXT UNILAT CLINICAL HISTORY: Right leg pain COMPARISON STUDY: No previous studies for comparison. FINDINGS: Real-time and color flow Doppler imaging were performed. Flow was seen within the femoral, popliteal and calf veins with no intraluminal thrombus demonstrated. The saphenous vein is patent. IMPRESSION: No evidence of right lower extremity DVT. Electronically signed by: Fritz Alberto M.D. 10/04/2016 7:58 PM Dictated Date/Time: 10/04/2016 7:58 PM
[2016-10-04 20:44] VITALS: BP 128/87; PULSE 81; TEMP 36.9; O2SAT 97
[2016-10-05] MEDS ORDERED: IBUP-1050 PO (19:44)
== END 2016-10-04 20:44 | disposition home or self-care (01) ==
LOC: C.EDB 15:49
DX: M25.561 Pain in right knee (principal); R05 Cough; Z98.890 Other specified postprocedural states; F17.210 Nicotine dependence, cigarettes, uncomplicated; Z79.899 Other long term (current) drug therapy

== ENCOUNTER 2016-10-05 18:14 | Emergency (ER) | payer OTHER ==
[~2016-10-05] VITALS: Ht 177.8 cm; Wt 89.3 kg
[~2016-10-05 18:14] MED LIST changes: -ACET-1256 PO; +AZIT-60 PO; +HYDR-3126 PO; +OXYC-57 PO
[2016-10-05 18:18] VITALS: Ht 177.8 cm; Wt 89.3 kg
[2016-10-05] MEDS ORDERED: SODIUM CHLORIDE 0.9% 1000ML 1,000 ML IV ONE (19:09)
[2016-10-05] MEDS ORDERED: ACETAMINOPHEN 500 MG TAB PO STA (19:09)
[2016-10-05] MEDS ORDERED: IBUP-1050 PO (19:44)
[2016-10-05 20:16] LABS: BASO % 0.2 %; BASO ABS # 0.02 K/uL (0-0.2); COMPLETE YES; EOS % 1.4 %; HEMATOCRIT 43.3 % (42-52); IG% 0.3 %; LYMPH % 22.6 %; LYMPH ABS # 2.08 K/uL (1.2-3.4); MEAN CELL VOLUME 82.3 fL (80-100); MEAN CORPUSCULAR HEMOGLOBIN 29.8 pg (25-34); MEAN CORPUSCULAR HGB CONC 36.3 g/dl (32-36); MONO % 7.4 %; NEUT % 68.1 %; PLATELET COUNT 239 K/uL (130-400); RED BLOOD COUNT 5.26 M/uL (4.7-6.1); WHITE BLOOD COUNT 9.21 K/uL (4.8-10.8)
[2016-10-05] MEDS ORDERED: MoRPHine SULFATE 10 MG/ML CARP/VIAL IV STA (20:17)
[2016-10-05 20:26] LABS: PROTHROMBIN TIME (PATIENT) 10.7 SECONDS (9.0-12.0)
[2016-10-05 20:33] LABS: BUN/CREATININE RATIO 10.8 (10-20); CALCIUM 9.3 mg/dl (8.5-10.1); CREATININE 0.98 mg/dl (0.60-1.40); POTASSIUM 3.6 mmol/L (3.5-5.1)
[2016-10-05 20:36] LABS: ALB/GLOB RATIO 1.3 (0.9-2)
--- NOTE | 2016-10-05 21:05 | EMERGENCY ROOM VISIT NOTE ---
History Report prepared by Kim: Clement Dunlap Under the Supervision of: Dr. Austin Diaz M.D. First contact with patient: 19:01 Chief Complaint: FEVER Stated Complaint: L, R KNEE PAIN, DIZZINESS, FEVER History of Present Illness The patient is a 21 year old male who presents to the Emergency Room with complaints of worsening right knee pain starting three weeks ago. He rates his pain as a 6/10 in severity. The patient states he had right knee surgery for a meniscus repair three weeks ago. He reports that he started to experience right knee pain following the surgery which has worsened. The patient states he has been feeling short of breath, dizzy, and weakness leading him to a near syncopal episode in the shower yesterday. The patient states that he has also been experiencing diarrhea that stopped a couple of days ago, abdominal pain, a fever, and a cough. He reports that these symptoms prompted him to visit the ED yesterday where they found no significant findings, but did give him 500 mg of Zithromax. The patient states that he was prescribed a Z pack for his cough but admits he has not been able to pick the prescription up yet. He states that his left knee has been experiencing pain since the visit, but admits that his right knee is still worse. He reports that he has had contact with orthopedics following his surgery including a follow up to remove stitches and two phone calls occurring yesterday and today. The patient states that orthopedics advised him to report to the ED. He reports that he occasionally takes Tylenol and ibuprofen and Ambien. The patient denies any sore throat or possible tick bites. Source of History: patient Onset: three weeks ago Position: knee (left) Symptom Intensity: 6/10 Timing: worsening Associated Symptoms: + fevers, + cough, + SOB, + abdominal pain, + diarrhea , + weakness Review of Systems See HPI for pertinent positives & negatives. A total of 10 systems reviewed and were otherwise negative. Past Medical & Surgical Medical Problems: (1) Arthritis, hip Surgical Problems: (1) S/P ACL reconstruction Family History FH: gallbladder disease Social History Smoking Status: Current Every Day Smoker Marital Status: in relationship Housing Status: lives with significant other Occupation Status: employed Current/Historical Medications Scheduled Azithromycin (Zithromax), 250 MG PO DAILY Hydroxyzine Hcl (Atarax), 100 MG PO HS Ibuprofen (Advil), 200-600 MG PO Q4H Zolpidem Tartrate (Ambien), 10 MG PO HS Scheduled PRN Oxycodone/Acetaminophen 5MG/325MG (Percocet 5MG/325MG), 1 TAB PO Q4H PRN for Pain Allergies Coded Allergies: No Known Allergies (Unverified , 10/05/16) Physical Exam Vital Signs Date Time Temp Pulse Resp B/P (MAP) Pulse Ox O2 Delivery O2 Flow Rate FiO2 10/05/16 22:13 36.8 70 16 141/80 99 10/05/16 22:09 70 16 141/80 99 Room Air 10/05/16 20:19 87 16 153/91 99 Room Air 10/05/16 18:18 36.8 108 18 144/85 98 Room Air Physical Exam GENERAL: Patient is in no acute distress. HEENT: No acute trauma, normocephalic atraumatic, mucous membranes moist, no nasal congestion, no scleral icterus. NECK: No stridor, no adenopathy, no meningismus, trachea is midline. LUNGS: Clear to auscultation bilaterally, no wheeze, no rhonchi, breath sounds equal. HEART: Without murmurs gallops or rubs, regular rate and rhythm. ABDOMEN: Soft, nontender, bowel sounds positive, no hernias, no peritonitis. EXTREMITIES: Evidence of recent surgery to right knee but no evidence of cellulitis. No large joint effusion. No real warmth. Diffuse pain with palpation about the anterior right knee. NEUROLOGIC: Oriented x 3, no acute motor or sensory deficits, no focal weakness. SKIN: No rash, no jaundice, no diaphoresis. Medical Decision & Procedures Laboratory Results 10/05/16 19:40 Red Blood Count 5.26, Mean Corpuscular Volume 82.3, Mean Corpuscular Hemoglobin 29.8, Mean Corpuscular Hemoglobin Concent 36.3, Mean Platelet Volume 9.0, Neutrophils (%) (Auto) 68.1, Lymphocytes (%) (Auto) 22.6, Monocytes (%) (Auto) 7.4, Eosinophils (%) (Auto) 1.4, Basophils (%) (Auto) 0.2, Neutrophils # (Auto) 6.27, Lymphocytes # (Auto) 2.08, Monocytes # (Auto) 0.68, Eosinophils # (Auto) 0.13, Basophils # (Auto) 0.02 10/05/16 19:40 Test 10/05/16 19:40 10/05/16 20:05 White Blood Count 9.21 K/uL (4.8-10.8) Red Blood Count 5.26 M/uL (4.7-6.1) Hemoglobin 15.7 g/dL (14.0-18.0) Hematocrit 43.3 % (42-52) Mean Corpuscular Volume 82.3 fL (80-100) Mean Corpuscular Hemoglobin 29.8 pg (25-34) Mean Corpuscular Hemoglobin Concent 36.3 g/dl (32-36) Platelet Count 239 K/uL (130-400) Mean Platelet Volume 9.0 fL (7.4-10.4) Neutrophils (%) (Auto) 68.1 % Lymphocytes (%) (Auto) 22.6 % Monocytes (%) (Auto) 7.4 % Eosinophils (%) (Auto) 1.4 % Basophils (%) (Auto) 0.2 % Neutrophils # (Auto) 6.27 K/uL (1.4-6.5) Lymphocytes # (Auto) 2.08 K/uL (1.2-3.4) Monocytes # (Auto) 0.68 K/uL (0.11-0.59) Eosinophils # (Auto) 0.13 K/uL (0-0.5) Basophils # (Auto) 0.02 K/uL (0-0.2) RDW Standard Deviation 36.0 fL (36.4-46.3) RDW Coefficient of Variation 12.0 % (11.5-14.5) Immature Granulocyte % (Auto) 0.3 % Immature Granulocyte # (Auto) 0.03 K/uL (0.00-0.02) Prothrombin Time 10.7 SECONDS (9.0-12.0) Prothromb Time International Ratio 1.0 (0.9-1.1) Activated Partial Thromboplast Time 27.1 SECONDS (21.0-31.0) Partial Thromboplastin Ratio 1.0 Anion Gap 9.0 mmol/L (3-11) Est Creatinine Clear Calc Drug Dose 133.0 ml/min Estimated GFR () 126.3 Estimated GFR (Non- 109.0 BUN/Creatinine Ratio 10.8 (10-20) Calcium Level 9.3 mg/dl (8.5-10.1) Total Bilirubin 0.6 mg/dl (0.2-1) Aspartate Amino Transf (AST/SGOT) 35 U/L (15-37) Alanine Aminotransferase (ALT/SGPT) 91 U/L (12-78) Alkaline Phosphatase 70 U/L (45-117) Total Protein 8.2 gm/dl (6.4-8.2) Albumin 4.6 gm/dl (3.4-5.0) Globulin 3.6 gm/dl (2.5-4.0) Albumin/Globulin Ratio 1.3 (0.9-2) Lyme Disease IgG Antibody NEG (NEG) Lyme Disease IgM Antibody NEG (NEG) Bedside Lactic Acid Venous 0.85 mmol/L (0.90-1.70) Laboratory results reviewed by me. Medications Administered Medications (Trade) Dose Ordered Sig/Kimberley Route Start Time Stop Time Status Last Admin Dose Admin Sodium Chloride 1,000 ml @ 999 mls/hr Q1H1M ONCE IV 10/05/16 19:09 10/05/16 20:09 DC 10/05/16 20:11 999 MLS/HR Morphine Sulfate (MoRPHine SULFATE INJ) 6 mg NOW STAT IV 10/05/16 20:17 10/05/16 20:18 DC 10/05/16 20:28 6 MG Azithromycin (Zithromax Tab) 500 mg NOW STAT PO 10/05/16 21:49 10/05/16 21:51 DC 10/05/16 22:07 500 MG ED Course 1904: The patient was evaluated in room A12A. A complete history and physical exam was performed. 1908: Sodium Chloride 1000 ml @ 999 mls/hr IV. 2017: Morphine Sulfate 6 mg IV. 2144: I reevaluated the patient. I discussed results and discharge instructions : H verbalized understanding and agreement and request Zithromax since he forgot to pick remover his prescription. The patient is ready for discharge. 2148: Azithromycin 500 mg PO. Medical Decision The differential diagnosis includes but is not limited to: joint infection, bacteremia, sepsis, viral illness, pneumonia, dehydration, cellulitis, Lyme's disease. Medication Reconciliation: I attest that I have personally reviewed the patient' s current medication list. Blood pressure screening: Patient was found to have a slightly elevated blood pressure due to circumstances. I do not believe that the patient requires hypertension monitoring. There is no leukocytosis or anemia. No significant electrolyte abnormality, kidney failure or hepatitis. Lyme disease testing is negative. Lactic acid level is not elevated making sepsis less likely. I reviewed the results from yesterday's testing, of note, blood cultures are negative thus far. The patient was given IV saline, he received IV morphine for pain, he was given a dose of oral Zithromax as he had missed today's dose-the Zithromax had been prescribed yesterday. He refused any Tylenol for aches and pain. The patient presents with right knee pain and joint aching. He said a cough, he has multiple complaints of areas where he doesn't feel well. He looks well though on exam and his workup is benign. I have encouraged him to talk with his orthopedist tomorrow for a recheck of his knee, possibly he needs the knee aspirated if there is true concern for infection within the joint. The patient is being discharged with outpatient follow-up. [place] Drug Monitoring Program Search Results: patient reviewed within database Drug Monitoring Findings: He was given narcotic pain prescription on September 12, 2016. Impression Primary Impression: Body aches Additional Impression: Right knee pain Scribe Attestation The scribe's documentation has been prepared under my direction and personally reviewed by me in its entirety. I confirm that the note above accurately reflects all work, treatment, procedures, and medical decision making performed by me. Departure Information Dispostion Home / Self-Care Referrals Drew Li D.O. (PCP) Forms HOME CARE DOCUMENTATION FORM, IMPORTANT VISIT INFORMATION Patient Instructions My [facility] Additional Instructions otc pain meds stay well hydrated zpac as directed previously see orthopedics tomorrow testing today was ok all lab work today was ok as we discussed Problem Qualifiers
[2016-10-05 21:28] LABS: LYME DISEASE AB IGG NEG (NEG); LYME DISEASE AB IGM NEG (NEG)
[2016-10-05] MEDS ORDERED: AZITHROMYCIN 250 MG TAB PO STA (21:49)
[2016-10-05 22:13] VITALS: BP 141/80; PULSE 70; TEMP 36.8; O2SAT 99
== END 2016-10-05 22:13 | disposition home or self-care (01) ==
LOC: C.EDB 18:16
DX: M25.561 Pain in right knee (principal); M79.1 Myalgia; M16.10 Unilateral primary osteoarthritis, unspecified hip; F17.200 Nicotine dependence, unspecified, uncomplicated; Z79.899 Other long term (current) drug therapy; Z83.79 Family history of other diseases of the digestive system

== ENCOUNTER → 2016-10-06 | Outpatient (CLI) | payer OTHER ==
[~2016-10-06] MED LIST changes: +IBUP-1050 PO
[2016-10-06 12:30] LABS: BASO % 0.4 %; BASO ABS # 0.03 K/uL (0-0.2); COMPLETE YES; EOS % 3.8 %; HEMATOCRIT 42.3 % (42-52); IG% 0.3 %; LYMPH % 23.5 %; LYMPH ABS # 1.69 K/uL (1.2-3.4); MEAN CELL VOLUME 82.9 fL (80-100); MEAN CORPUSCULAR HEMOGLOBIN 30.2 pg (25-34); MEAN CORPUSCULAR HGB CONC 36.4 g/dl (32-36); MEAN PLATELET VOLUME 9.3 fL (7.4-10.4); MONO % 8.3 %; NEUT % 63.7 %; PLATELET COUNT 243 K/uL (130-400); WHITE BLOOD COUNT 7.19 K/uL (4.8-10.8)
[2016-10-06 14:15] LABS: ALT/SGPT 89 U/L (12-78); BLOOD UREA NITROGEN 12 mg/dl (7-18); BUN/CREATININE RATIO 13.7 (10-20); CALCIUM 9.4 mg/dl (8.5-10.1); CARBON DIOXIDE 22 mmol/L (21-32); CHLORIDE 109 mmol/L (98-107); CREATININE 0.86 mg/dl (0.60-1.40); GLUCOSE 100 mg/dl (70-99); POTASSIUM 3.9 mmol/L (3.5-5.1); SODIUM 140 mmol/L (136-145)
[2016-10-06 14:18] LABS: ALB/GLOB RATIO 1.2 (0.9-2); ALKALINE PHOSPHATASE 63 U/L (45-117); AST/SGOT 35 U/L (15-37)
== END | disposition home or self-care (01) ==
LOC: C.LABPBG 08:42
PROVIDERS: ATTEND Neuromusculoskeletal Medicine & OMM
DX: Z00.00 Encounter for general adult medical examination without abnormal findings (principal); I10 Essential (primary) hypertension

== ENCOUNTER → 2016-10-31 | Outpatient (CLI) | payer OTHER ==
[~2016-10-31] MED LIST changes: -AZIT-60 PO
== END | disposition home or self-care (01) ==
LOC: C.LABPBG 11:29
PROVIDERS: ATTEND Neuromusculoskeletal Medicine & OMM
DX: R68.82 Decreased libido (principal)

== ENCOUNTER 2016-11-04 15:02 | Emergency (ER) | payer OTHER ==
[~2016-11-04] VITALS: Ht 179.1 cm; Wt 92.6 kg
[2016-11-04 15:04] VITALS: TEMP 36.7; Ht 179.1 cm; Wt 92.6 kg
[2016-11-04] MEDS ORDERED: KETOROLAC TROMETHAMINE 60 MG/2 ML VIAL IM STA (15:21)
--- NOTE | 2016-11-04 15:46 | DIAGNOSTIC IMAGING REPORT ---
CT OF THE HEAD WITHOUT CONTRAST CLINICAL HISTORY: Severe headache following head injury. COMPARISON STUDY: No previous studies for comparison. CT DOSE: 537.48 mGy.cm TECHNIQUE: Helical axial images of the head were obtained without IV contrast. Automated exposure control was utilized for the study. A dose lowering technique was utilized adhering to the principles of ALARA. FINDINGS: No acute intracranial hemorrhage, midline shift or mass effect is present. Brain volume is normal. Ventricular system is normal. There are no extra-axial collections. Rojo-white differentiation is maintained. There is a suspected mucous retention cyst within the right sphenoid sinus. There is mild mucosal thickening of the ethmoid sinuses. Mastoid air cells are clear. There is no calvarial fracture. IMPRESSION: 1. No acute intracranial findings. 2. No calvarial fracture. Electronically signed by: Arthur Gomez M.D. 11/04/2016 3:45 PM Dictated Date/Time: 11/04/2016 3:40 PM
[2016-11-04] MEDS ORDERED: DiphenhydrAMINE HCL 50 MG/ML VIAL IM STA (16:50)
[2016-11-04 16:56] VITALS: BP 137/85; PULSE 101; O2SAT 97
--- NOTE | 2016-11-04 19:40 | EMERGENCY ROOM VISIT NOTE ---
History Report prepared by Kim: Yaen Francis Under the Supervision of: Rafael BenitezO. First contact with patient: 15:08 Chief Complaint: HEADACHE Stated Complaint: MIGRAINE 3 DAYS, HIT HEAD OFF DOOR History of Present Illness The patient is a 21 year old male who presents to the Emergency Room with complaints of a constant headache for the past 3 days. The patient states that 3 nights ago he ran into a door and hit his right latter day on the door. Immediately after the incident, he developed a headache. He states that the headache has turned into a migraine. The patient has a history of migraine headaches and states that he typically gets a migraine once a month for the past ten years. He typically has relief with Imitrex. The patient has tried taking Imitrex, Tylenol, and ibuprofen for this headache without any relief. He states that this feels like his typical migraine headache, except that it is much more intense and lasting a lot longer than usual. He has not been evaluated by anyone for this headache. The patient rates his pain as an 8.5/10 in severity. Pt denies change in vision, fevers, numbness, weakness, chest pain , shortness of breath, nausea, vomiting, diarrhea, and pain with urination. Source of History: patient Onset: 3 days ago Position: head Symptom Intensity: 8.5/10 Timing: constant Modifying Factors (Worsening): other (getting hit in the head) Associated Symptoms: No fevers, No chest pain, No SOB, No nausea, No vomiting, No melena, No diarrhea, No urinary symptoms, No weakness, No numbness Review of Systems See HPI for pertinent positives & negatives. A total of 10 systems reviewed and were otherwise negative. Past Medical & Surgical Medical Problems: (1) Arthritis, hip Surgical Problems: (1) S/P ACL reconstruction Family History FH: gallbladder disease Social History Smoking Status: Current Every Day Smoker Marital Status: in relationship Housing Status: lives with significant other Occupation Status: employed Current/Historical Medications Scheduled Hydroxyzine Hcl (Atarax), 100 MG PO HS Zolpidem Tartrate (Ambien), 10 MG PO HS Scheduled PRN Ibuprofen (Advil), 200-600 MG PO Q4H PRN for Pain Allergies Coded Allergies: No Known Allergies (Unverified , 11/04/16) Physical Exam Vital Signs Date Time Temp Pulse Resp B/P (MAP) Pulse Ox O2 Delivery O2 Flow Rate FiO2 11/04/16 16:56 101 16 137/85 97 Room Air 11/04/16 15:04 36.7 112 18 151/94 99 Room Air Physical Exam GENERAL: alert, well appearing, well nourished, no distress, non-toxic HEAD: NC/AT EYE EXAM: normal conjunctiva, PERRL and EOM's grossly intact NOSE: No septal hematoma. OROPHARYNX: no exudate, no erythema, lips, buccal mucosa, and tongue normal and mucous membranes are moist NECK: supple, no nuchal rigidity, no adenopathy, non-tender LUNGS: Clear to auscultation. Normal chest wall mechanics HEART: no murmurs, S1 normal and S2 normal ABDOMEN: abdomen soft, non-tender, normo-active bowel sounds, no masses, no rebound or guarding. BACK: Back is symmetrical on inspection and there is no deformity, no midline tenderness, no CVA tenderness. SKIN: no rashes and no bruising UPPER EXTREMITIES: upper extremities are grossly normal. LOWER EXTREMITIES: No pitting edema. NEURO EXAM: Normal sensorium, cranial nerves II-XII intact, normal speech, no weakness of arms, no weakness of legs. No drift. Finger to nose intact. Gross sensation intact. Rapid alternating movements of the upper extremities intact. Medical Decision & Procedures ER Provider Diagnostic Interpretation: Radiology results as stated below per my review and the radiologist's interpretation: CT OF THE HEAD WITHOUT CONTRAST CLINICAL HISTORY: Severe headache following head injury. COMPARISON STUDY: No previous studies for comparison. CT DOSE: 537.48 mGy.cm TECHNIQUE: Helical axial images of the head were obtained without IV contrast. Automated exposure control was utilized for the study. A dose lowering technique was utilized adhering to the principles of ALARA. FINDINGS: No acute intracranial hemorrhage, midline shift or mass effect is present. Brain volume is normal. Ventricular system is normal. There are no extra-axial collections. Rojo-white differentiation is maintained. There is a suspected mucous retention cyst within the right sphenoid sinus. There is mild mucosal thickening of the ethmoid sinuses. Mastoid air cells are clear. There is no calvarial fracture. IMPRESSION: 1. No acute intracranial findings. 2. No calvarial fracture. Electronically signed by: Arthur Gomez M.D. 11/04/2016 3:45 PM Dictated Date/Time: 11/04/2016 3:40 PM Medications Administered Medications (Trade) Dose Ordered Sig/Kimberley Route Start Time Stop Time Status Last Admin Dose Admin Ketorolac Tromethamine (Toradol Inj) 60 mg NOW STAT IM 11/04/16 15:21 11/04/16 15:22 DC 11/04/16 15:43 60 MG Diphenhydramine HCl (Benadryl Inj) 50 mg NOW STAT IM 11/04/16 16:50 11/04/16 16:51 DC 11/04/16 16:55 50 MG ED Course ED COURSE: Vital signs were reviewed and showed tachycardic and hypertensive. The patients medical record was reviewed The above diagnostic studies were performed and reviewed. ED treatments and interventions as stated above. 1508: The patient was evaluated in room A3. A complete history and physical examination was performed. 1521: Toradol 60 mg IM 1648: Upon reevaluation, the patient is doing well. I discussed my findings with the patient and he understands and agrees with the treatment plan. Based on the patients age, coexisting illnesses, exam and lab findings the decision to treat as an outpatient was made. The patient remained stable while under my care. The patient appeared well at the time of discharge. 1650: Benadryl 50 mg IM Medical Decision Differential Diagnosis includes but is not limited to headache, tension headache , cluster headache, migraine, subarachnoid hemorrhage, meningitis, mass, central venous thrombus, concussion, trauma and epidural/subdural hemorrhage. Patient is a 21-year-old male who presents the ER following hitting his head Sunday night. There is no obvious contusion. He is complaining of a severe headache since the incident. I do believe this consistent with a concussion. On my exam is completely neurologically intact. GCS 15. CT head was negative. Patient was given IM Toradol and Benadryl. He requested an IV on multiple occasions but declined. He has more than 24 prescriptions by 9 different providers in the past year. He was given concussion discharge instructions and discharged follow-up with his PCP. Discussed with Pt concerning signs and symptoms to watch out for. Pt was instructed to follow up with their PCP and discussed with the patient their option to return to the ED at anytime for persistent or worsening symptoms. The appropriate anticipatory guidance and out- patient management, including indications for return to the emergency department , were explained at length to the patient and understood. Medication Reconcilliation Current Medication List: was personally reviewed by me Blood Pressure Screening Patient's blood pressure: Elevated blood pressure Blood pressure disposition: Referred to PCP Impression Primary Impression: Concussion Scribe Attestation The scribe's documentation has been prepared under my direction and personally reviewed by me in its entirety. I confirm that the note above accurately reflects all work, treatment, procedures, and medical decision making performed by me. Departure Information Dispostion Home / Self-Care Referrals Drew Li D.O. (PCP) Forms HOME CARE DOCUMENTATION FORM, IMPORTANT VISIT INFORMATION Patient Instructions Concussion Dc, ED Concussion, My [facility] Additional Instructions Please follow up with your primary care doctor with in the next 24 hours. Any worsening of your symptoms, please return to the ED immediately. This includes any fevers greater than 100.4, weakness or numbness in your arms or legs, worsening pain, chest pain, shortness breath, persistent nausea, vomiting, unable to eat or drink, or any other concerning signs or symptoms from your standpoint. You were found to have a blood pressure greater than 120 systolic over 90 diastolic. Due to the new Medicare guidelines, we are now recommending that you follow up with your primary care doctor in regards to this elevated blood pressure. Absolutely no return to any physical activity until you're seen by your primary care doctor and medically cleared. Please take Tylenol or Motrin as needed for pain. Problem Qualifiers Primary Impression: Concussion Encounter type: initial encounter Loss of consciousness presence/duration: without LOC Qualified Codes: S06.0X0A - Concussion without loss of consciousness, initial encounter
== END 2016-11-04 17:04 | disposition home or self-care (01) ==
LOC: C.EDB 15:03 → C.EDA 17:04
DX: S06.0X0A Concussion without loss of consciousness, initial encounter (principal); W22.8XXA Striking against or struck by other objects, initial encounter; M08.4 Pauciarticular juvenile rheumatoid arthritis; F17.200 Nicotine dependence, unspecified, uncomplicated